=== PATIENT | female | born 1985 | race Caucasian/White ===

== ENCOUNTER → 2016-05-20 | Outpatient (CLI) | payer OTHER ==
[2016-03-08 17:00] VITALS: BP 125/71
[~2016-05-20] MED LIST: DICY20TA3 PO; IBUP800T PO; METO10TA81 PO; ONDA4TAB12 PO
--- NOTE | 2016-05-20 16:27 | RAD ---
Right hand right wrist radiographs History: Right hand and wrist pain for 2 days, no known injury. Comparison: None. Findings: PA, lateral, oblique, and ulnar deviated views of the right wrist. No acute fracture or dislocation is identified. Mild ulnar negative variance is seen. No focal soft tissue swelling is identified. PA, lateral, and oblique views of the right hand. No acute fracture or dislocation is identified. No focal soft tissue swelling is seen. Impression: No acute osseous abnormality identified in the right wrist or right hand.
== END | disposition home or self-care (01) ==
LOC: DXRADRC 15:37
PROVIDERS: ATTEND Family Medicine
DX: M25.531 Pain in right wrist (principal); M79.641 Pain in right hand
CPT/HCPCS: 73110; 73130

== ENCOUNTER 2017-02-19 17:18 | Emergency (ER) | payer SELFPAY ==
[~2017-02-19] VITALS: Ht 157.5 cm; Wt 55.3 kg
[~2017-02-19 17:18] MED LIST changes: -IBUP800T PO; +IBUP800T19 PO
[2017-02-19] MEDS ORDERED: PENICILLIN G BENZATHINE LA 1,200,000 UNIT/2 ML DISP.SYRIN. IM ONE (18:15)
[2017-02-19] MEDS ORDERED: DEXAMETHASONE 4 MG TABLET PO ONE (18:15)
[2017-02-19 18:25] VITALS: BP 128/60
[2017-02-19] MEDS ORDERED: ACET5SOL3 PO (18:26)
--- NOTE | 2017-02-19 18:26 | PHYS DOC ---
Past History Past Medical History: Anxiety, Endometriosis Past Surgical History: No Surgical History Smoking: Non-smoker Alcohol Use: Rarely Drug Use: None Adult General Chief Complaint Chief Complaint: SORE THROAT HPI HPI Patient is a 31-year-old female who is been experiencing sore throat and ear discomfort for 2 days. Patient denies any cough, rashes, fevers or chills. No known sick contacts, patient does not describe any drainage. Patient doesn't know to have a history of recent travel. Patient denies any neck pain, chest pain, shortness of fair or headache Review of Systems Review of Systems Constitutional: Denies fever or chills [] Eyes: Denies change in visual acuity, redness, or eye pain [] HENT: As per history of present illness Respiratory: Denies cough or shortness of breath [] Cardiovascular: No chest pain GI: Denies abdominal pain, nausea, vomiting, Musculoskeletal: Denies back pain or joint pain or neck pain Integument: Denies rash or skin lesions [] Neurologic: Denies headache, focal weakness or sensory changes [] All other systems were reviewed and found to be within normal limits, except as documented in this note. Current Medications Current Medications Current Medications Medications (Trade) Dose Ordered Sig/Chilo Start Time Stop Time Status Last Admin Dose Admin Dexamethasone (Decadron) 8 mg 1X ONCE 02/19/17 18:15 02/19/17 18:16 DC Penicillin G Benzathine (Bicillin L-A) 1,200,000 unit 1X ONCE 02/19/17 18:15 02/19/17 18:16 UNV Allergies Allergies Allergies Coded Allergies Type Severity Reaction Last Updated Verified Latex, Natural Rubber Allergy Intermediate Anxiety 08/04/14 Yes Physical Exam Physical Exam Constitutional: Well developed, well nourished, no acute distress, non-toxic appearance. [] HENT: Normocephalic, atraumatic, bilateral external ears normal, tympanic membranes are clear, no signs of mastoiditis, oropharynx moist, no oral exudates but there is erythema, nose normal. Airways patent[] Eyes: EOMI, conjunctiva normal, no discharge. [] Neck: Normal range of motion, no tenderness, supple, no stridor. No LAD, no meningeal signs Cardiovascular:Heart rate regular rhythm, no murmur, equal pulses, normal perfusion Lungs & Thorax: Bilateral breath sounds clear to auscultation, no tachypnea Abdomen: No distention Skin: Warm, dry, no erythema, no rash. [] Back: No tenderness, no CVA tenderness. [] Extremities: No tenderness, , ROM intact, no edema. [] Neurologic: Alert and oriented X 3, normal motor function, ambulates in the ED with normal gait and without assistance, no focal deficits noted. [] Psychologic: Affect normal, judgement normal, mood normal. [] Current Patient Data Lab Results Laboratory Tests Test 02/19/17 17:45 Group A Streptococcus Rapid Positive (NEGATIVE) EKG EKG [] Radiology/Procedures Radiology/Procedures [] Course & Med Decision Making Course & Med Decision Making Pertinent Labs and Imaging studies reviewed. (See chart for details) [] Dragon Disclaimer Dragon Disclaimer This electronic medical record was generated, in whole or in part, using a voice recognition dictation system. Departure Departure: Impression: Primary Impression: Strep pharyngitis Disposition: HOME, SELF-CARE Condition: STABLE Referrals: WILLIAM HESS (PCP) Please follow with your doctor for recheck and reevaluation in 3-5 days. If your symptoms worsen or new concerning symptoms develop this return to the ED immediately. Patient Instructions: Viral and Bacterial Pharyngitis Scripts Acetaminophen with Codeine (Acetaminop-Codeine 120-12 mg/5) 5 Ml Solution 5 ML PO TID for 2 Days, [facility] [place] Prov: Low KAPLAN MD 02/19/17 Low KAPLAN MD Feb 19, 2017 18:26
[2017-02-19 18:31] LABS: INFLUENZA A PATIENT NEGATIVE (NEGATIVE); INFLUENZA B PATIENT NEGATIVE (NEGATIVE)
== END 2017-02-19 18:35 | disposition home or self-care (01) ==
LOC: ER 17:18
DX: J02.0 Streptococcal pharyngitis (principal); F41.9 Anxiety disorder, unspecified; Z91.040 Latex allergy status
CPT/HCPCS: 87804; 87880; 96372; 99284; J0561; J8540

== ENCOUNTER → 2018-11-14 | Outpatient (CLI) | payer SELFPAY ==
[~2018-11-14] MED LIST changes: +ACET5SOL3 PO
[2018-11-14 16:22] LABS: BASO # 0.1 x10^3/uL (0.0-0.2); BASO % 1 % (0-3); EOS # 0.1 x10^3/uL (0.0-0.7); EOS % 1 % (0-3); HEMOGLOBIN 10.2 g/dL (12.0-15.5); LYMPH # 2.2 x10^3/uL (1.0-4.8); LYMPH % 29 % (24-48); MEAN CORPUSCULAR HEMOGLOBIN 30 pg (25-35); MEAN CORPUSCULAR HGB CONC 32 g/dL (31-37); MEAN CORPUSCULAR VOLUME 95 fL (79-100); MONO # 0.6 x10^3/uL (0.0-1.1); MONO % 8 % (0-9); NEUT # 4.5 x10^3uL (1.8-7.7); NEUT % 61 % (31-73); PLATELET COUNT 426 x10^3/uL (140-400); RED BLOOD COUNT 3.38 x10^6/uL (3.50-5.40); RED CELL DISTRIBUTION WIDTH 21.1 % (11.5-14.5); WHITE BLOOD COUNT 7.5 x10^3/uL (4.0-11.0)
[2018-11-14 17:22] LABS: HYPOCHROMIA SLIGHT; PLT ESTIMATE INCREASED (ADEQUATE); POLYCHROMASIA SLIGHT
[2018-11-14 17:23] LABS: ANISOCYTOSIS MOD; OVALOCYTES OCC; TEAR DROP CELLS OCC; TOXIC GRANULATION SLIGHT
== END | disposition home or self-care (01) ==
LOC: LAB 15:34
PROVIDERS: ATTEND Nurse Practitioner Women's Health
DX: D64.9 Anemia, unspecified (principal)
CPT/HCPCS: 36415; 85025